=== PATIENT | female | born 1970 | race Caucasian/White ===

== ENCOUNTER 2019-10-22 12:06 | Emergency (ER) | payer OTHER, MEDICAID, SELFPAY ==
--- NOTE | 2019-10-22 12:12 | DI.RAD.S_ITS ---
PROCEDURE: XR CHEST 1V INDICATIONS: chest pain TECHNIQUE: One view of the chest was acquired. COMPARISON: None. FINDINGS: Surgical changes and devices: None. Lungs and pleura: An incomplete inspiratory result is noted, causing a crowded appearance to the lung markings. No focal infiltrates are seen. No pneumothorax or significant pleural effusions are seen. Mediastinum: Mediastinal contours appear normal. Heart size is normal. Bones and chest wall: No suspicious bony lesions. Age-appropriate bony degenerative changes are seen. Overlying soft tissues appear unremarkable. IMPRESSION: Limited portable chest examination, without a significant cardiopulmonary abnormality identified. Dictated by: Andrae Sharma M.D. on 10/22/2019 at 11:47 Approved by: Andrae Sharma M.D. on 10/22/2019 at 11:47
[2019-10-22 12:15] VITALS: BP 159/88; PULSE 97; RESP 24; TEMP 37; O2SAT 95; BMI 38.4
--- NOTE | 2019-10-22 12:21 | ED_ITS ---
HPI - Chest Pain General Chief Complaint: Chest Pain Stated Complaint: Center Chest Pain, SOB, Dizziness Time Seen by Provider: 10/22/19 12:16 Source: patient Mode of arrival: Ambulatory Limitations: no limitations History of Present Illness HPI narrative: Patient is a 49-year-old female who presents with chest disc omfort ongoing for the last few days possibly even a week. She notices it more at night when she tries to lay down she feels like her heart is fluttering in her chest. His 7 has shortness of breath is with exertion but not too bad she has a cough but it is not any worse than normal she typically gets a cough with allergies. She is extremely anxious and nervous her mom had a heart attack when she was 48 years ld. She also has anxiety and depression she thinks now she it may be having a panic attack. She says she also has some radiation up to her jaw which also happens when she has a panic attack. She has not been to a doctor for a couple of years MD complaint: chest pain Related Data Home Medications Medication Instructions Recorded Confirmed [APPLE CIDER VINEGAR] 2 cap PO PRN PRN #0 01/21/16 Previous Rx's Medication Instructions Recorded Glucose: Test Strips strip QDAY #100 08/18/16 atorvastatin [Lipitor] 20 mg PO HS #90 tab 08/18/16 levothyroxine [Synthroid] 125 mcg PO QDAY #90 tab 08/18/16 lisinopril 10 mg PO QDAY #90 tab 08/18/16 metformin [Glucophage] 500 mg PO TIDCC #90 tab 01/08/17 Allergies Allergy/AdvReac Type Severity Reaction Status Date / Time No Known Drug Allergies Allergy Verified 10/22/19 12:12 Review of Systems Review of Systems Narrative: GENERAL: Denies chills, fatigue, malaise, fever, sweats, travel HEENT: Denies sinus pain, ear pain, sore throat, difficulty swallowing, neck pain RESPIRATORY: Denies dyspnea, cough, wheezing, hemoptysis, sputum. CARDIOVASCULAR: See HPI GASTROINTESTINAL: Denies nausea, vomiting, abdominal pain, diarrhea, constipation, melena. : Denies dysuria, frequency, incontinence, hematuria, urinary retention, flank pain. MUSCULOSKELETAL: Denies weakness, joint pain, or bony pain SKIN: No rash, no erythema, no pruritus NEUROLOGIC: Denies weakness, dizziness, headache, numbness, change in speech, confusion PSYCHIATRIC: No concerning psychosocial issues. 12 point review of systems is negative except for those stated above and HPI Patient History Medical History Essential hypertension (06/01/15) Hypothyroidism (04/17/14) Type 2 diabetes mellitus without complication (07/14/14) Family History Father Type II diabetes mellitus Mother Coronary artery disease Type II diabetes mellitus Hyperlipidemia Essential hypertension Sister Hypothyroidism Migraine headache Social History Smoking Status: Never smoker Exam Initial Vital Signs Initial Vital Signs: Vital Signs Temperature 98.6 F 10/22/19 12:15 Pulse Rate 97 H 10/22/19 12:15 Respiratory Rate 24 10/22/19 12:15 Blood Pressure 159/88 H 10/22/19 12:15 Pulse Oximetry 95 10/22/19 12:15 GENERAL: Alert anxious slightly overweight female HEENT: Head atraumatic,EOMI, pupils reactive, face symmetric, moist mucous membranes CARDIOVASCULAR: Regular rate and rhythm without murmurs, rubs or gallops. RESPIRATORY: Breath sounds equal bilaterally, no wheezes rales or rhonchi. ABDOMEN: Soft, nontender. Normoactive bowel sounds all 4 quadrants. No guarding or rebound. EXTREMITIES: Normal range of motion, no clubbing or edema. Neurovascularly intact NEUROLOGICAL: Alert and oriented x4.Normal gait and speech. SKIN: Warm, dry, no laceration, no petechiae, no rashes or lesions. Scores HEART Score Heart Score history: Slightly Suspicious Heart Score EKG: Normal Heart Score Age: 45-64 years old Heart Score risk factors: > 3 risk factors or hx of atherosclerotic disease Heart Score troponin: < or = to normal limit Heart Score Total: 3 Course Orders Ordered: ED Orders 10/22/19 12:12 XR chest 1V Stat EKG-12 Lead Stat 10/22/19 12:27 Complete Blood Count AUTO DIFF Stat Comprehensive Metabolic Panel Stat Lipase Stat Partial Thromboplastin Time Stat Prothrombin Time INR Stat Troponin & CK Cardiac Panel Stat 10/22/19 13:52 EKG-12 Lead Routine Vital Signs Vital signs: Vital Signs - 8 hr 10/22/19 12:15 10/22/19 14:15 Temperature 98.6 F Pulse Rate 97 H 74 Respiratory Rate 24 18 Blood Pressure 159/88 H 162/71 H Pulse Oximetry 95 99 MDM - Chest Pain Lab Data Attestation: I reviewed the patient's lab results. Result diagrams: 10/22/19 12:27 10/22/19 12:27 Labs: Lab Results 10/22/19 10/22/19 10/22/19 Range/Units 12: 12: 12:27 WBC 7.7 (4.5-11.0) X10^3/uL RBC 5.32 H (4.0-5.2) X10^6/uL Hgb 15.0 (12.0-16.0) g/dL Hct 44.4 (36-46) % MCV 83.4 (80-100) fL MCH 28.3 (26-34) PG MCHC 33.9 (30-36) % RDW 13.6 (11.6-14.8) % Plt Count 369 (150-400) X10^3/uL Neut % (Auto) 52.4 (50-75) % Lymph % (Auto) 36.9 (25-40) % [facility] % (Auto) 8.7 (3-14) % Eos % (Auto) 1.7 L (2-4) % Baso % (Auto) 0.3 (0-2) % Neut # (Auto) 4000 (4032-7299) /uL Lymph # (Auto) 2800 (4780-6428) /uL [facility] # (Auto) 700 (0-900) /uL Eos # (Auto) 100 (0-450) /uL Baso # (Auto) 0 (0-100) /uL PT 11.3 (10.1-12.7) SECONDS INR 1.0 (0.9-1.3) APTT 30 (26.4-36.2) SECONDS Sodium 134 L (137-145) mmol/L Potassium 4.3 (3.4-5.1) mmol/L Chloride 104 (98-107) mmol/L Carbon Dioxide 19 L (22-32) mmol/L BUN 18 H (7-17) mg/dL Creatinine 0.42 L (0.52-1.04) mg/dL Estimated GFR > 60.0 (>60) mL/min BUN/Creatinine Ratio 42.9 H (6-22) Glucose 314 H (70-100) mg/dL Calcium 9.5 (8.4-10.2) mg/dL Total Bilirubin 0.8 (0.2-1.3) mg/dL AST 94 H (14-36) IU/L ALT 154 H (<35) IU/L Alkaline Phosphatase 113 (38-126) U/L Total Creatine Kinase 55 (30-135) U/L CK-MB (CK-2) TNP CK-MB (CK-2) Rel Index TNP Troponin I < 0.012 (0.01-0.034) ng/mL Total Protein 8.1 (6.3-8.2) g/dL Albumin 4.7 (3.5-5.0) g/dL Globulin 3.4 (1.7-4.1) g/dL Albumin/Globulin Ratio 1.4 (1.0-2.8) Lipase 183 (23-300) U/L Imaging Data Chest x-ray: Radiologist's Impression: PROCEDURE: XR CHEST 1V INDICATIONS: chest pain TECHNIQUE: One view of the chest was acquired. COMPARISON: None. FINDINGS: Surgical changes and devices: None. Lungs and pleura: An incomplete inspiratory result is noted, causing a crowded appearance to the lung markings. No focal infiltrates are seen. No pneumothorax or significant pleural effusions are seen. Mediastinum: Mediastinal contours appear normal. Heart size is normal. Bones and chest wall: No suspicious bony lesions. Age-appropriate bony degenerative changes are seen. Overlying soft tissues appear unremarkable. IMPRESSION: Limited portable chest examination, without a significant cardiopulmonary abnormality identified. Dictated by: Andrae Sharma M.D. on 10/22/2019 at 11:47 Approved by: Andrae Sharma M.D. on 10/22/2019 at 11:47 ECG Data Attestation: I personally reviewed and interpreted this ECG as follows: Prior ECG tracings: not available for review Interpretation: EKG 1. Normal sinus rhythm rate 96 p.r. interval 158 QRS 87 QTC 399 EKG 2. Sinus rhythm rate 85 p.r. interval 160, QTC 410 no changes from prior MDM Narrative Medical decision making narrative: Patient's discomfort and fluttering has been ongoing for a week worse at night. Troponin negative, EKGs do not show any change. At this time patient is feeling better and feels ready and able to go. Discharge Plan Departure Patient Disposition: Home Clinical Impression: Atypical chest pain Discharge Date/Time: 10/22/19 14:16 Instructions: DI for Atypical Chest Pain Activity Restrictions/Additional Instructions: *You have been diagnosed with atypical chest pain *What to do: You may require outpatient testing such as stress test and/or echocardiogram please discuss this with her primary care provider at this time is not indicated that he stay in the hospital for this testing. *Continue to take medications as directed *Follow up with your primary care provider in 2-3 days *Return to ER if you should have worsening chest pain, shortness of breath, increased heart palpitations or any new, worsening or concerning symptoms Prescriptions: No Action [APPLE CIDER VINEGAR] 2 cap PO PRN PRNQty: 0 RF: 0 atorvastatin [Lipitor] 20 MG tablet 20 mg PO HS Qty: 90 RF: 3 levothyroxine [Synthroid] 125 MCG tablet 125 mcg PO QDAY Qty: 90 RF: 3 lisinopril 10 MG tablet 10 mg PO QDAY Qty: 90 RF: 3 Glucose: Test Strips QDAY Qty: 100 RF: 4 metformin [Glucophage] 500 MG tablet 500 mg PO TIDCC Qty: 90 RF: 0 Referrals: [facility] [Outside] Ermelinda Ramsey PA-C [Primary Care Provider] -
--- NOTE | 2019-10-22 12:39 | PC.NURSE ---
iv placed labs drawn ekg performed pt on fisher trot line
[2019-10-22 12:49] LABS: Add Manual Diff / Slide Review NO; Basophils Absolute Auto 0 /uL (0-100); Basophils Percent Auto 0.3 % (0-2); Eosinophils Absolute Auto 100 /uL (0-450); Eosinophils Percent Auto 1.7 % (2-4); Hematocrit 44.4 % (36-46); Lymphocytes Absolute Auto 2800 /uL (1100-4500); Lymphocytes Percent Auto 36.9 % (25-40); Mean Corpuscular HGB Conc 33.9 % (30-36); Mean Corpuscular Hemoglobin 28.3 PG (26-34); Mean Corpuscular Volume 83.4 fL (80-100); Monocytes Absolute Auto 700 /uL (0-900); Monocytes Percent Auto 8.7 % (3-14); Neutrophils Absolute Auto 4000 /uL (1500-7000); Neutrophils Percent Auto 52.4 % (50-75); Platelet Count 369 X10^3/uL (150-400); Red Blood Cell Count 5.32 X10^6/uL (4.0-5.2); Red Cell Distribution Width 13.6 % (11.6-14.8); White Blood Cell Count 7.7 X10^3/uL (4.5-11.0)
[2019-10-22 12:50] LABS: Prothrombin Time 11.3 SECONDS (10.1-12.7)
[2019-10-22 12:52] LABS: PTT Partial Thromboplastin Tim 30 SECONDS (26.4-36.2)
[2019-10-22 12:55] LABS: Alanine Aminotransferase 154 IU/L (<35); Albumin 4.7 g/dL (3.5-5.0); Albumin Globulin Ratio 1.4 (1.0-2.8); Alkaline Phosphatase 113 U/L (38-126); Aspartate Aminotransferase 94 IU/L (14-36); BUN Creatinine Ratio 42.9 (6-22); Bilirubin Total 0.8 mg/dL (0.2-1.3); Blood Urea Nitrogen 18 mg/dL (7-17); Calcium 9.5 mg/dL (8.4-10.2); Carbon Dioxide 19 mmol/L (22-32); Chloride 104 mmol/L (98-107); Creatine Kinase 55 U/L (30-135); Estimated Glomerular Filt Rate > 60.0 mL/min (>60); Globulin 3.4 g/dL (1.7-4.1); Glucose 314 mg/dL (70-100); HEMOLYSIS 18 (0-50); Lipase 183 U/L (23-300); Potassium 4.3 mmol/L (3.4-5.1); Sodium 134 mmol/L (137-145); Total Protein 8.1 g/dL (6.3-8.2)
[2019-10-22 13:06] LABS: Troponin I < 0.012 ng/mL (0.01-0.034)
[2019-10-22 14:15] VITALS: BP 162/71; PULSE 74; RESP 18; O2SAT 99
== END 2019-10-22 14:16 | disposition home or self-care (01) ==
PROVIDERS: Emergency Provider Emergency Medicine; Family Provider Physician Assistant; PCP Physician Assistant
DX: R07.89 Other chest pain (principal); F41.9 Anxiety disorder, unspecified; F32.9 Major depressive disorder, single episode, unspecified
CPT/HCPCS: 36415; 71045; 80053; 82550; 83690; 84484; 85025; 85610; 85730; 93005; 93010; 99284

== ENCOUNTER → 2019-11-05 08:37 | Outpatient (CLI) | payer OTHER, MEDICAID, SELFPAY ==
[2019-11-07 12:08] LABS: COVID19 Sendout Not Detected (Not Detect)
== END ==
PROVIDERS: Family Provider Physician Assistant; PCP Physician Assistant; Visit Provider Physician Assistant
DX: Z11.59 Encounter for screening for other viral diseases (principal)
CPT/HCPCS: 87635

== ENCOUNTER → 2019-11-08 12:58 | Outpatient (CLI) | payer OTHER, MEDICAID, SELFPAY ==
--- NOTE | 2019-11-08 14:44 | PM.TREADMILL ---
Cardiac Stress Test Report Referral & Results Date Patient Seen: 11/08/19 Requesting provider: Tc Gruber Indication: Chest discomfort Rest ECG: Unremarkable Procedure Note: Today following both written and verbal informed consent, the patient was exercised according to a standard Lars protocol. The patient exercised for a total of 4 minutes 11 seconds achieving a maximum heart rate of 166. Patient's maximum systolic blood pressure was 188. This was an estimated 7.0 MET's. Exercise terminated because the patient was unable to continue with 3-4+ dyspnea There are no ST-T segment changes Occasional PVC Functional aerobic impairment rates about 30% on the sedentary scale Impression: No evidence of ischemia Limited exercise capacity as above Please note: Actual ECG tracings can be found in the PACS system.
== END ==
PROVIDERS: Family Provider Physician Assistant; PCP Registered Nurse; Referring Provider Registered Nurse; Visit Provider Registered Nurse
DX: R07.89 Other chest pain (principal)
CPT/HCPCS: 93016; 93017; 93018

== ENCOUNTER → 2019-11-16 13:48 | Outpatient (CLI) | payer OTHER, MEDICAID, SELFPAY ==
--- NOTE | 2019-11-16 13:49 | DI.US.S_ITS ---
PROCEDURE: US ABDOMEN COMPLETE INDICATIONS: elevated liver enzymes TECHNIQUE: Real-time scanning was performed of the abdominal and retroperitoneal organs, with image documentation. COMPARISON: None. FINDINGS: Liver: Liver is enlarged in size and homogeneous in echotexture, diffusely hyperechoic consistent with fatty infiltration. The craniocaudad length of the liver is at least 22 cm. . Gallbladder: No gallstones are seen and no pericholecystic free fluid is present but there is tenderness during sonographic palpation over the gallbladder. Biliary ducts: 1.8 mm in maximal dimension Pancreas: Appears normal where well seen. Spleen: Not enlarged, homogeneous in echotexture Kidneys: Kidneys are normal in size and echotexture. Right kidney measures 12.0 cm long; left kidney measures 13.7 cm long. No hydronephrosis or nephrolithiasis. No solid masses. Aorta: Visualized aorta is normal in caliber at less than 3 cm. Iliacs: Proximal common iliac arteries are normal in caliber at less than 2.5 cm. IVC: Intrahepatic inferior vena cava is patent. Miscellaneous: No free abdominal fluid. IMPRESSION: Hepatomegaly without splenomegaly, prominent fatty infiltration throughout the liver. No ascites or varices are found. Focal tenderness during sonographic palpation over the gallbladder, but there are no gallstones or evidence of gallbladder wall thickening or adjacent pericholecystic free fluid. There is tenderness on sonographic palpation of the gallbladder, however. Dictated by: Quintin Sheffield M.D. on 11/16/2019 at 16:08 Approved by: Quintin Sheffield M.D. on 11/16/2019 at 16:10
== END ==
PROVIDERS: Family Provider Physician Assistant; PCP Registered Nurse; Referring Provider Registered Nurse; Visit Provider Registered Nurse
DX: R74.8 Abnormal levels of other serum enzymes (principal); R16.0 Hepatomegaly, not elsewhere classified
CPT/HCPCS: 76700

== ENCOUNTER → 2020-10-09 07:18 | Outpatient (CLI) | payer OTHER, MEDICAID, SELFPAY ==
[2020-10-09 07:46] LABS: Cholesterol 243 mg/dL (140-199); HDL Cholesterol 59 mg/dL (40-60); LDL Cholesterol Calculated 139 mg/dL (<100); Triglycerides 226 mg/dL (35-150)
[2020-10-09 08:03] LABS: Free T4, Direct Thyroxine 1.57 ng/dL (0.78-2.19)
[2020-10-09 08:17] LABS: Thyroid Stimulating Hormone 6.64 uIU/mL (0.47-4.68)
== END ==
PROVIDERS: Family Provider Physician Assistant; PCP Registered Nurse; Referring Provider Registered Nurse; Visit Provider Registered Nurse
DX: E78.5 Hyperlipidemia, unspecified (principal); E03.9 Hypothyroidism, unspecified
CPT/HCPCS: 36415; 80061; 84439; 84443

== ENCOUNTER → 2020-12-29 10:37 | Outpatient (CLI) | payer OTHER, MEDICAID, SELFPAY ==
[2020-12-29 12:14] LABS: Thyroid Stimulating Hormone 3.71 uIU/mL (0.47-4.68)
== END ==
PROVIDERS: Family Provider Physician Assistant; PCP Registered Nurse; Referring Provider Registered Nurse; Visit Provider Registered Nurse
DX: E03.9 Hypothyroidism, unspecified (principal)
CPT/HCPCS: 36415; 84443

== ENCOUNTER → 2022-08-11 09:33 | Outpatient (CLI) | payer OTHER, SELFPAY ==
[2022-08-11 10:47] LABS: Add Manual Diff / Slide Review NO; Basophils Absolute Auto 100 /uL (0-100); Basophils Percent Auto 1.3 % (0-2); Eosinophils Absolute Auto 100 /uL (0-450); Eosinophils Percent Auto 2.4 % (2-4); Hemoglobin 15.2 g/dL (12.0-16.0); Lymphocytes Absolute Auto 2600 /uL (1100-4500); Lymphocytes Percent Auto 43.3 % (25-40); Mean Corpuscular HGB Conc 34.6 % (30-36); Mean Corpuscular Hemoglobin 29.1 PG (26-34); Mean Corpuscular Volume 84.1 fL (80-100); Monocytes Absolute Auto 600 /uL (0-900); Monocytes Percent Auto 9.3 % (3-14); Neutrophils Absolute Auto 2600 /uL (1500-7000); Neutrophils Percent Auto 43.7 % (50-75); Platelet Count 294 X10^3/uL (150-400); Red Blood Cell Count 5.23 X10^6/uL (4.0-5.2); Red Cell Distribution Width 12.8 % (11.6-14.8)
[2022-08-11 11:05] LABS: Alanine Aminotransferase 220 IU/L (<35); Albumin 4.6 g/dL (3.5-5.0); Albumin Globulin Ratio 1.3 (1.0-2.8); Alkaline Phosphatase 132 U/L (38-126); Aspartate Aminotransferase 112 IU/L (14-36); BUN Creatinine Ratio 38.1 (6-22); Bilirubin Total 0.9 mg/dL (0.2-1.3); Blood Urea Nitrogen 16 mg/dL (7-17); Calcium 9.5 mg/dL (8.4-10.2); Carbon Dioxide 28 mmol/L (22-32); Chloride 99 mmol/L (98-107); Cholesterol 255 mg/dL (140-199); Estimated Glomerular Filt Rate > 60 mL/min (>60); Globulin 3.5 g/dL (1.7-4.1); Glucose 355 mg/dL (70-100); HDL Cholesterol 49 mg/dL (40-60); HEMOLYSIS < 15 (0-50); LDL Cholesterol Calculated 171 mg/dL (<100); Potassium 4.6 mmol/L (3.4-5.1); Sodium 136 mmol/L (137-145); Total Protein 8.1 g/dL (6.3-8.2); Triglycerides 176 mg/dL (35-150)
[2022-08-11 11:34] LABS: Creatinine Urine Random 89.8 mg/dL
[2022-08-11 11:39] LABS: Microalbumi Creatinin Ratio Ur 64.5 ug/mg CR (<30); Microalbumin Urine Random 5.8 mg/dL (0-1.6)
[2022-08-11 12:11] LABS: Free T4, Direct Thyroxine 0.94 ng/dL (0.78-2.19)
[2022-08-12 07:14] LABS: Labcorp Hemoglobin (Hb) A1c 12.3 % (4.8-5.6)
== END ==
PROVIDERS: Family Provider Physician Assistant; PCP Family Medicine; Referring Provider Family Medicine; Visit Provider Family Medicine
DX: E03.9 Hypothyroidism, unspecified (principal); E11.42 Type 2 diabetes mellitus with diabetic polyneuropathy; E11.8 Type 2 diabetes mellitus with unspecified complications; E78.5 Hyperlipidemia, unspecified; I10 Essential (primary) hypertension
CPT/HCPCS: 36415; 80053; 80061; 82043; 82570; 83036; 84439; 84443; 85025

== ENCOUNTER → 2022-10-01 09:47 | Outpatient (CLI) | payer OTHER, SELFPAY ==
[2022-10-01 11:41] LABS: BUN Creatinine Ratio 29.5 (6-22); Blood Urea Nitrogen 13 mg/dL (7-17); Calcium 9.2 mg/dL (8.4-10.2); Carbon Dioxide 26 mmol/L (22-32); Chloride 102 mmol/L (98-107); Estimated Glomerular Filt Rate > 60 mL/min (>60); Glucose 194 mg/dL (70-100); HEMOLYSIS < 15 (0-50); Potassium 4.1 mmol/L (3.4-5.1); Sodium 138 mmol/L (137-145)
[2022-10-01 11:50] LABS: Free T3, Triiodothyronine Free 2.98 pg/mL (2.77-5.27); Free T4, Direct Thyroxine 1.38 ng/dL (0.78-2.19)
[2022-10-01 12:04] LABS: Thyroid Stimulating Hormone 3.66 uIU/mL (0.47-4.68)
[2022-10-02 09:01] LABS: Fructosamine 370 umol/L (0-285)
[2022-10-02 18:36] LABS: Thyroid Peroxidase Antibodies 135 IU/mL (0-34)
== END ==
PROVIDERS: Family Provider Physician Assistant; PCP Family Medicine; Referring Provider Family Medicine; Visit Provider Family Medicine
DX: E03.9 Hypothyroidism, unspecified (principal); E11.8 Type 2 diabetes mellitus with unspecified complications; E78.5 Hyperlipidemia, unspecified
CPT/HCPCS: 36415; 80048; 82985; 84439; 84443; 84481; 86376; 86800

== ENCOUNTER → 2022-12-06 09:27 | Outpatient (CLI) | payer OTHER, SELFPAY ==
[2022-12-06 10:27] LABS: Hemoglobin A1C% w Est Avg Glu 9.1 % (4.0-6.0)
[2022-12-07 07:38] LABS: Fructosamine 459 umol/L (0-285)
== END ==
PROVIDERS: Family Provider Physician Assistant; PCP Family Medicine; Referring Provider Family Medicine; Visit Provider Family Medicine
DX: E11.8 Type 2 diabetes mellitus with unspecified complications (principal); E11.21 Type 2 diabetes mellitus with diabetic nephropathy; E11.42 Type 2 diabetes mellitus with diabetic polyneuropathy; E78.5 Hyperlipidemia, unspecified
CPT/HCPCS: 36415; 82985; 83036

== ENCOUNTER → 2023-03-14 09:40 | Outpatient (CLI) | payer OTHER, SELFPAY ==
[2023-03-14 11:34] LABS: Hemoglobin A1C% w Est Avg Glu 10.2 % (4.0-6.0)
== END ==
LOC: LAB 09:41
PROVIDERS: Family Provider Physician Assistant; PCP Family Medicine; Referring Provider Family Medicine; Visit Provider Family Medicine
DX: E11.8 Type 2 diabetes mellitus with unspecified complications (principal)
CPT/HCPCS: 36415; 83036

== ENCOUNTER → 2023-04-11 07:48 | Outpatient (CLI) | payer OTHER, SELFPAY ==
--- NOTE | 2023-04-11 07:50 | DI.MG.S_ITS ---
BILATERAL DIGITAL SCREENING MAMMOGRAM 3D/2D WITH CAD: 04/11/2023 CLINICAL: Routine screening. Comparison is made to exam dated: 05/05/2014 mammogram - [facility]. There are scattered areas of fibroglandular density in both breasts (category b / 25%-50% glandular tissue). Current study was also evaluated with a Computer Aided Detection (CAD) system. No significant masses, calcifications, or other findings are seen in either breast. There has been no significant interval change. IMPRESSION: NEGATIVE There is no mammographic evidence of malignancy. A 1 year screening mammogram is recommended. Based on the Tyrer Cuzick model (a risk assessment model) the patient's lifetime risk is 7.9% and her 10 year risk is 2.1%. According to the ACR, ACS, and NCCN guidelines, an annual breast MRI exam along with mammogram is recommended if the patient's lifetime risk is 20% or greater. This exam was interpreted at Station ID: [id number]. NOTE: For mammograms, a report in lay terms will be sent to the patient. Approximately 15% of breast malignancies will not be visualized mammographically. In the management of a palpable breast mass, a negative mammogram must not discourage biopsy of a clinically suspicious lesion. Electronically Signed By: Navdeep livingston/[email or web address]:04/13/2023 09:02:16 letter sent: Normal Exam ACR BI-RADS Category 1: Negative 3341F
== END ==
LOC: MAMMO 07:49
PROVIDERS: Family Provider Physician Assistant; PCP Family Medicine; Referring Provider Family Medicine; Visit Provider Family Medicine
DX: Z12.31 Encounter for screening mammogram for malignant neoplasm of breast (principal); R92.323 Mammographic fibroglandular density, bilateral breasts
CPT/HCPCS: 77063; 77067

== ENCOUNTER → 2023-04-21 15:10 | Outpatient (CLI) | payer OTHER, SELFPAY ==
--- NOTE | 2023-04-21 16:50 | DIAB.MNT ---
Initial Diabetes Medical Nutrition Therapy Assessment Name: Mariama Treviño Date: 04/21/23 Time: 335-435p Dx: Type II Diabetes Mariama presents for initial Dm visit. PMH of DM since . H/o DM education at [facility]. PMH of GDM with last (). Reports some neuropathy symptoms in toes and fingers. FH of Dm with both parents, father h/o toe amputation. Mother passed and father currently in hospice. Cousin recently passed and has had health problems this year. She also is having some concerns for her daughter, who just dropped out of college. Overall, feeling stress. Reports baseline difficulty with anxiety. Manages this with self talk and family support. Tries to avoid anxiety meds per report. States she feels a lot of guilt with dm, ie guilt with eating right and guilt with elevated bg. Plans to start Invocana, waiting on rx to arrive. Insurance would not initially approve GLP1, though she thinks they would if needed. Has hesitation about injections though. Has questions about when to take glipizide. Main questions today is about protein. How does this impact CHO and bg. 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 Most meals small and freq. Portions seem mostly in goal, but sometimes low in protein. sometimes higher carb intake. Reports h/o 30# weight loss with walking. Diet Recall: 730a: decaf coffee with sf creamer and stevia 845a: 1/2c rice cereal, 1/4c pineapple, 8oz milk 1030a: 1/2c cottage cheese, coke zero OR low CHO wolof yogurt OR cheese sticks 1230p: bbq chx 2 legs, 1/2c baked beans, 1/2c rice OR 1/2c enchiladas, 1/3c peas, 1/3c peaches 315p: 8 crackers, with hummus, fruit or veggie 5p: 1-2c tuna casserol with garlic bread OR chicken enchiladas OR applebees Thursday: chx with patricia and potatoes Beverages: 60oz water, 1-2 16oz bottles coke zero, 16oz sf sweet tea Anthropometrics: Ht: 68 Wt: 259# 03/2023 at PCP Physical Activity: Currently no program. H/o gym and walking. wants to get back to exercise. Self-Monitoring Blood Glucose: None currently. H/o feeling overwhelmed by high numbers and stopping checks as a result. Diabetes Medications: 10mg Glipizide 1000mg Metformin BID 100mg Invocana (not started yet) Pertinent Labs: HgA1c: 12.3% 07/2022 9.1% 11/2022 10.2% 03/2023 Past Medical History: (Last Updated 08/19/22 @ 11:50 by Umm Fuentes DO) Essential hypertension (06/01/15) Hypothyroidism (04/17/14) LOM (left otitis media) Nutrition Rx: Carbohydrates: Meal:30-45g Snack:15-30g Nutrition Diagnosis: - Nutrition knowledge deficit r/t needing more guidance on CHO/PRO recs aeb pt report - Self monitoring deficit r/t anxiety about hyperglycemia results aeb pt report - Physical inactivity r/t stage of change contemplative/preparation aeb pt report Intervention: This participant was very receptive. Provided appropriate educational handouts. Discussed the following topics: Completed intake assessment. Discussed barriers to care. Pathophysiology of T2DM HgA1 review Self monitoring recs and if elevated the implication (lifestyle changes vs meds) Plate Method, impact of macronutrients on blood sugar, meal timing, brief carbohydrate counting, pairing macronutrients and spreading out carbohydrates for better blood glucose management Recommended servings for carbohydrates at meals and snacks Brainstormed appropriate meal/snack ideas on food preferences Role of physical activity and plan Impact of stress on BG Support network for stress management Med management: action of GLP1 and SGLT2i, taking glipizide pre meal Created SMART goals for patient self-care and success. Goals: Aim for 2 walks per week Check BG Keep CHO to 1 c at meals Incorporate protein in meals/snacks Follow-up: KALI JACQUES follow-up in 2-3 weeks Ana Olson RDN, SAWYER Certified Diabetes Care and Lens Examiner P: [phone] Thank you for this referral
== END ==
PROVIDERS: Family Provider Physician Assistant; PCP Family Medicine; Referring Provider Family Medicine; Visit Provider Family Medicine
DX: E11.9 Type 2 diabetes mellitus without complications (principal); Z79.84 Long term (current) use of oral hypoglycemic drugs; Z71.3 Dietary counseling and surveillance
CPT/HCPCS: 97802

== ENCOUNTER → 2023-05-06 15:37 | Outpatient (CLI) | payer OTHER, SELFPAY ==
--- NOTE | 2023-05-07 11:39 | DIAB.MNTFU ---
Follow-up Diabetes Medical Nutrition Therapy Assessment Name: Mariama Treviño Date: 05/06/23 Time: 4-5p Dx: Type II Diabetes Mariama presents for Dm follow-up. Her father recently passed. She somewhat teary today. Reports some stress/emotional eating recently. Per diet recall, work days her eating schedule is pretty set with small freq portions, sometimes low in protein. On non work or non student days, eating schedule is not as structured with more grazing. Endorses snacking on chips without portioning out. Chooses low carb bread. Still waiting on added DM med, Invokana. Endorses feeling nervous about other dm meds, ie insulin and other injectables. Fearful of GLP1RA due to hearing about GI SE. Unclear on what her insurance will cover, but seems she may need additional dm med for BG management. Reports frequent eating out. Anthropometrics: Ht: 68 Wt: 259# 03/2023 at PCP Physical Activity: Currently no program. H/o gym and walking. wants to get back to exercise. Reports some walking recently but weather dependent. Self-Monitoring Blood Glucose: One evening check 3-4 hrs after dinner at 240 mg/dl. No other readings. Diabetes Medications: 10mg Glipizide 1000mg Metformin BID 100mg Invokana (not started yet) Pertinent Labs: HgA1c: 12.3% 07/2022 9.1% 11/2022 10.2% 03/2023 Past Medical History: (Last Updated 08/19/22 @ 11:50 by Umm Fuentes DO) Essential hypertension (06/01/15) Hypothyroidism (04/17/14) LOM (left otitis media) Nutrition Rx: Carbohydrates: Meal:30-45g Snack:15-30g Nutrition Diagnosis: - Nutrition knowledge deficit r/t needing more guidance on CHO/PRO recs aeb pt report- improved/in progress - Self monitoring deficit r/t anxiety about hyperglycemia results aeb pt report- in progress - Physical inactivity r/t stage of change contemplative/preparation aeb pt report- in progress Intervention: This participant was very receptive. Provided appropriate educational handouts. Discussed the following topics: Meal timing, carbohydrate, pairing macronutrients and spreading out carbohydrates for better blood glucose management Meal planning and carb portions Stress eating DM medications actions, SE, overall options Created SMART goals for patient self-care and success. Goals: Aim for 2 walks per week- not met Check BG - in progress Keep CHO to 1 c at meals - in progress Incorporate protein in meals/snacks - not met Aim for eating q 3-4 hours on days without students- new Call insurance about Dm meds- new Portion out chips- new Pair nuts with chips at snack- new Follow-up: KALI JACQUES follow-up in 2-3 weeks Ana Olson RDN, SAWYER Certified Diabetes Care and Chute Man P: [phone] Thank you for this referral
== END ==
PROVIDERS: Family Provider Physician Assistant; PCP Family Medicine; Referring Provider Family Medicine; Visit Provider Family Medicine
DX: E11.9 Type 2 diabetes mellitus without complications (principal); Z79.84 Long term (current) use of oral hypoglycemic drugs; Z71.3 Dietary counseling and surveillance
CPT/HCPCS: 97803

== ENCOUNTER → 2023-05-19 15:43 | Outpatient (CLI) | payer OTHER, SELFPAY ==
--- NOTE | 2023-05-27 17:10 | DIAB.MNTFU ---
Follow-up Diabetes Medical Nutrition Therapy Assessment Name: Mariama Treviño Date: 05/19/23 Time: 4-530p Dx: Type II Diabetes Mariama presents for DM follow-up. 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 Reports reduced chip intake recently. States she called insurance about DM med coverage. Received a letter. Will bring next visit. Pairing protein and carbs for snacks. Reports numbness in feet. Has eye appt in May. No dental visit scheduled. Continued stress with family dynamics in losing father and cousin. Uses walking for stress management. Reports freq eating out each week, 3-4x Eating out: Local place: fish and chips with coleslaw Restaurant: chicken or steak with veggies +/- potatoes OR eggplant parm with spaghetti and salad and breadsticks Fast food: burger with fries or fajita osiel with fries or onion rings taco and burrito or nachos Anthropometrics: Ht: 68 Wt: 259# 03/2023 at PCP Physical Activity: Currently no program. H/o gym and walking. wants to get back to exercise. Reports some walking recently but weather dependent. Wants to get back to walking. Self-Monitoring Blood Glucose: Inconsistent checks indicate elevations, FBG 250-280mg/dl. Diabetes Medications: 10mg Glipizide 1000mg Metformin BID 100mg Invokana (not started yet) Pertinent Labs: HgA1c: 12.3% 07/2022 9.1% 11/2022 10.2% 03/2023 Past Medical History: (Last Updated 08/19/22 @ 11:50 by Umm Fuentes DO) Essential hypertension (06/01/15) Hypothyroidism (04/17/14) LOM (left otitis media) Nutrition Rx: Carbohydrates: Meal:30-45g Snack:15-30g Nutrition Diagnosis: - Nutrition knowledge deficit r/t needing more guidance on CHO/PRO recs aeb pt report- improved/in progress - Self monitoring deficit r/t anxiety about hyperglycemia results aeb pt report- in progress - Physical inactivity r/t stage of change contemplative/preparation aeb pt report- in progress - Excessive CHO intake r/t nutrition knowledge deficit regarding eating out aeb diet recall- new Intervention: This participant was very receptive. Provided appropriate educational handouts. Discussed the following topics: Blood sugar review Medication review: likely need for additional dm med coverage Plate Method, label reading, eating out strategies Heart health nutrition: fats, fiber, and sodium Meal planning and carb counting review Physical activity plan and progress Complication reduction: caring for feet, importance of dental and eye visits Created SMART goals for patient self-care and success. Goals: Aim for eating q 3-4 hours on days without students- met Call insurance about Dm meds- met Portion out chips- met Pair nuts with chips at snack- met Check feet daily- new Check insurance letter- new Call for dental visit- new Try new eating out option- new Walk 2x per week for 20-30 min- new Follow-up: KALI JACQUES follow-up in 2-3 weeks. Plans to see PCP in May. Ana Olson RDN, CDCES Certified Diabetes Care and Hearing Aid Fitter P: [phone] Thank you for this referral
== END ==
LOC: DIET 15:44
PROVIDERS: Family Provider Physician Assistant; PCP Family Medicine; Referring Provider Family Medicine; Visit Provider Family Medicine
DX: E11.9 Type 2 diabetes mellitus without complications (principal); Z79.84 Long term (current) use of oral hypoglycemic drugs; Z71.3 Dietary counseling and surveillance
CPT/HCPCS: 97803

== ENCOUNTER → 2023-06-06 09:17 | Outpatient (CLI) | payer OTHER, SELFPAY ==
[2023-06-06 09:59] LABS: Hematocrit 41.3 % (36-46); Hemoglobin 13.9 g/dL (12.0-16.0); Mean Corpuscular HGB Conc 33.7 % (30-36); Mean Corpuscular Hemoglobin 28.4 PG (26-34); Mean Corpuscular Volume 84.4 fL (80-100); Platelet Count 338 X10^3/uL (150-400); Red Blood Cell Count 4.89 X10^6/uL (4.0-5.2); Red Cell Distribution Width 13.1 % (11.6-14.8); White Blood Cell Count 7.1 X10^3/uL (4.5-11.0)
[2023-06-06 10:12] LABS: Hemoglobin A1C% w Est Avg Glu 9.8 % (4.0-6.0)
[2023-06-06 10:16] LABS: Alanine Aminotransferase 109 IU/L (<35); Albumin 4.4 g/dL (3.5-5.0); Albumin Globulin Ratio 1.4 (1.0-2.8); Alkaline Phosphatase 94 U/L (38-126); Aspartate Aminotransferase 62 IU/L (14-36); BUN Creatinine Ratio 42.9 (6-22); Bilirubin Total 0.6 mg/dL (0.2-1.3); Blood Urea Nitrogen 18 mg/dL (7-17); Calcium 9.7 mg/dL (8.4-10.2); Carbon Dioxide 29 mmol/L (22-32); Chloride 106 mmol/L (98-107); Cholesterol 243 mg/dL (140-199); Estimated Glomerular Filt Rate > 60 mL/min (>60); Globulin 3.2 g/dL (1.7-4.1); Glucose 268 mg/dL (70-100); HDL Cholesterol 56 mg/dL (40-60); HEMOLYSIS < 15 (0-50); LDL Cholesterol Calculated 150 mg/dL (<100); Potassium 4.7 mmol/L (3.4-5.1); Sodium 139 mmol/L (137-145); Total Protein 7.6 g/dL (6.3-8.2); Triglycerides 183 mg/dL (35-150)
[2023-06-06 10:19] LABS: High Sensitivity CRP - Cardiac 3.5 mg/L (1.0-3.0)
[2023-06-06 10:46] LABS: TSH w/ Reflex to FT4 0.42 uIU/mL (0.47-4.68)
[2023-06-06 11:11] LABS: Free T4, Direct Thyroxine 1.45 ng/dL (0.78-2.19)
[2023-06-06 11:28] LABS: Creatinine Urine Random 89.8 mg/dL
[2023-06-06 11:29] LABS: Microalbumi Creatinin Ratio Ur 51.2 ug/mg CR (<30); Microalbumin Urine Random 4.6 mg/dL (0-1.6)
[2023-06-07 06:15] LABS: Thyroid Peroxidase Antibodies 66 IU/mL (0-34)
== END ==
PROVIDERS: Family Provider Physician Assistant; PCP Family Medicine; Referring Provider Family Medicine; Visit Provider Family Medicine
DX: E11.8 Type 2 diabetes mellitus with unspecified complications (principal); E11.21 Type 2 diabetes mellitus with diabetic nephropathy; E11.42 Type 2 diabetes mellitus with diabetic polyneuropathy; E78.5 Hyperlipidemia, unspecified; I10 Essential (primary) hypertension; E03.9 Hypothyroidism, unspecified; K76.0 Fatty (change of) liver, not elsewhere classified
CPT/HCPCS: 36415; 80053; 80061; 82043; 82570; 83036; 84439; 84443; 85027; 86140; 86376

== ENCOUNTER → 2023-06-18 15:44 | Outpatient (CLI) | payer OTHER, SELFPAY ==
--- NOTE | 2023-06-30 08:41 | DIAB.MNTFU ---
Follow-up Diabetes Medical Nutrition Therapy Assessment Name: Mariama Treviño Date: Time: Dx: Type II Diabetes Provider: Preferred Learning Style: Diet Recall: Anthropometrics: Ht: Wt: Weight history: Physical Activity: Self-Monitoring Blood Glucose: Date Pre Post Pre Post Pre Post HS Diabetes Medications: Pertinent Labs: Past Medical History: (Last Updated 08/19/22 @ 11:50 by Umm Fuentes DO) Essential hypertension (06/01/15) Hypothyroidism (04/17/14) LOM (left otitis media) Nutrition Rx: Carbohydrates: Daily: Meal: Snack: Nutrition Diagnosis: Intervention: This participant was very receptive. Provided appropriate educational handouts. Discussed the following topics: Blood sugar review and trends. Impact of food intake on results. Plate Method, impact of macronutrients on blood sugar, meal timing, carbohydrate counting, pairing macronutrients and spreading out carbohydrates for better blood glucose management Heart health nutrition: fats, fiber, and sodium Eating out and grocery shopping tips Meal planning and carb counting review Physical activity plan and progress Created SMART goals for patient self-care and success. Goals: Follow-up: KALI JACQUES follow-up in 2-3 weeks Ana Olson RDN, [facility] Certified Diabetes Care and Pulp House Supervisor P: [phone] Thank you for this referral
--- NOTE | 2023-06-30 08:41 | DIAB.MNTFU ---
Follow-up Diabetes Medical Nutrition Therapy Assessment Name: Mariama Treviño Date: 06/18/23 Time: 4-445p Dx: Type II Diabetes Mariama presents for follow-up DM visit. Reports she plans to pickling solution maker Jardiance at pharmacy today. States she is choosing more salads over fries when eating out. Also more eggs vs pancakes when eating out breakfast. Reports not buying sweets. States she has increased veggie intake. eating out 4x on weekends. Has not made dental appt. Feels if she moved shower to nighttime she would have more time for morning routine and BG checks. Anthropometrics: Ht: 68 Wt: 268# 06/08/2023 Physical Activity: Walking 1x per week min, goal of 2x per week Self-Monitoring Blood Glucose: None Diabetes Medications: 10mg Glipizide 1000mg Metformin BID 10mg Jardiance Pertinent Labs: HgA1c: 12.3% 07/2022 9.1% 11/2022 10.2% 03/2023 9.8% 06/2023 Past Medical History: (Last Updated 08/19/22 @ 11:50 by Umm Fuentes DO) Essential hypertension (06/01/15) Hypothyroidism (04/17/14) LOM (left otitis media) Nutrition Rx: Carbohydrates: Meal:30-45g Snack:15-30g Nutrition Diagnosis: - Nutrition knowledge deficit r/t needing more guidance on CHO/PRO recs aeb pt report- improved - Self monitoring deficit r/t anxiety about hyperglycemia results aeb pt report- in progress - Physical inactivity r/t stage of change contemplative/preparation aeb pt report- improved - Excessive CHO intake r/t nutrition knowledge deficit regarding eating out aeb diet recall- improved Intervention: This participant was very receptive. Provided appropriate educational handouts. Discussed the following topics: Eating out review and changes Impact of lifestyle and pathophysiology of DM on hgA1c and diabetes state Reducing risks of complications Self monitoring BG Physical activity plan and progress Created SMART goals for patient self-care and success. Goals: Check feet daily- met Check insurance letter- met Call for dental visit- in progress Try new eating out option- met Walk 2x per week for 20-30 min- improved Try to reduce eating out- new Move shower to evening- new Start FBG checks- new Follow-up: KALI JACQUES follow-up in 2-3 weeks Ana Olson RDN, [facility] Certified Diabetes Care and Geodetic Survey Director P: [phone] Thank you for this referral
== END ==
PROVIDERS: Family Provider Physician Assistant; PCP Family Medicine
DX: E11.9 Type 2 diabetes mellitus without complications (principal); Z79.84 Long term (current) use of oral hypoglycemic drugs; Z71.3 Dietary counseling and surveillance
CPT/HCPCS: 97803

== ENCOUNTER 2023-07-21 11:59 | Day surgery (SDC) | payer OTHER, SELFPAY ==
[2023-07-21 12:43] VITALS: BP 151/84; PULSE 83; RESP 22; TEMP 37; O2SAT 98
[2023-07-21] MEDS: LACTATED RINGERS 1,000 ML 42 ML IV (12:44)
--- NOTE | 2023-07-21 12:58 | PM.HP.1 ---
History of Present Illness History of Present Illness Date Patient Seen: 07/21/23 Time Patient Seen: 12:58 Chief complaint: Colonoscopy Narrative: 52-year-old woman here for screening colonoscopy 1st time. No family history of colon cancer in first-degree relatives. No abdominal concerns today. [facility] Medical History (Updated 03/16/23 @ 09:36 by Umm Fuentes DO) LOM (left otitis media) Essential hypertension (06/01/15) Hypothyroidism (04/17/14) Family History Father Type II diabetes mellitus Mother Coronary artery disease Type II diabetes mellitus Hyperlipidemia Essential hypertension Sister Hypothyroidism Migraine headache Social History Smoking Status: Never smoker alcohol intake: current Meds Home Medications and Allergies Home Medications Medication Instructions Recorded Confirmed Type Glucose: Test Strips 08/05/21 12/15/22 History L.ac,bul,par,rha-B.ani,patrick-inu PO 08/19/22 03/16/23 History [Probiotic Digest Supp (6-strn)] biotin [Hair, Skin and Nails PO 08/19/22 03/16/23 History (biotin)] fluticasone propionate [24 Hour intranasal 08/19/22 03/16/23 History Allergy Relief] glipizide 10 mg tablet 10 mg PO DAILY #90 tabs 03/16/23 07/21/23 Rx levothyroxine 112 mcg tablet 112 mcg PO DAILY #90 tabs 03/16/23 07/21/23 Rx loratadine 10 mg tablet (Claritin) 10 mg PO DAILY 03/16/23 07/21/23 History metformin 500 mg tablet See Rx Instructions .Route 03/16/23 07/21/23 Rx .COMPLEX #360 tabs sodium chloride [Saline Nasal] intranasal 03/16/23 03/16/23 History lisinopril 20 mg tablet 20 mg PO DAILY #90 tabs 06/08/23 07/21/23 Rx estradiol 0.025 mg/24 hr 1 patch transdermal 2XW #8 ea 07/06/23 07/21/23 Rx semiweekly transdermal patch progesterone micronized 200 mg 200 mg PO BEDTIME #45 caps 05/06/24 05/21/24 Rx capsule (Prometrium) empagliflozin 10 mg tablet 10 mg PO DAILY 07/21/23 07/21/23 History (Jardiance) Allergies Allergy/AdvReac Type Severity Reaction Status Date / Time No Known Drug Allergies Allergy Verified 07/21/23 12:24 Exam Vital Signs (past 8 hours): - 07/21/23 12:43 Temperature 98.6 F Pulse Rate 83 Respiratory Rate 22 Blood Pressure 151/84 H Pulse Oximetry 98 Oxygen Delivery Method Room Air Oxygen Delivery Method Room Air Narrative Exam Narrative: General adult woman alert oriented no acute distress Chest nonlabored respiration Extremities warm well perfused Assessment & Plan Assessment & Plan narrative: The patient requires colorectal screening and colonoscopy is recommended. Technical details were discussed. Risks, benefits, alternatives explained. Risks including but not limited to myocardial infarction, aspiration, bleeding, pain, missed lesion, incomplete examination, need for further radiographic studies, intestinal injury, and need for major abdominal surgery were discussed. All questions were answered to their satisfaction, and they are in agreement with this plan.
[2023-07-21 13:27] VITALS: BP 109/65; PULSE 70; RESP 12; TEMP 36.4; O2SAT 97
[2023-07-21 13:32] VITALS: BP 112/72; PULSE 71; RESP 15; O2SAT 97
--- NOTE | 2023-07-21 13:32 | P.OP.COLON_ITS ---
Operative Date/Time/Diagnoses Date of procedure: 07/21/23 Time of procedure: 13:32 Pre-op diagnosis: Colorectal screening Procedure & Clinicians Study performed: Screening colonoscopy Same procedure as scheduled: Yes Indications: Colorectal screening Surgeon: Santana Bradford Procedure Notes Procedure in detail: The history and physical was performed/updated and the patient is ASA class is 2. The procedure was discussed in detail with the patient. Potential risks co mplications including infection, bleeding, missed diagnosis, perforation, need for surgery, and were explained. Their questions were answered and informed consent was obtained. Patient was brought to the procedure room and placed standard monitoring equipment. The patient's vital signs were monitored continuously throughout the entire procedure. Prior to starting time-out was performed. The patient was placed in the left lateral recumbent position. Procedural sedation was administered by anesthesia. Examination began with a thorough inspection of the perianal area there was no evidence of fissures, fistulae, external hemorrhoids or cutaneous malignancy. The colonoscopy scope was then placed into the anal canal and was advanced to the cecum, which was identified by the ileocecal valve, the appendiceal orifice and the confluence of the taenia. The scope was then slowly withdrawn examining colon thoroughly in all directions, irrigating it of any residual stool. The scope was retroflexed within the rectum The patient tolerated the procedure well. They will be discharged once criteria are met. The prep was of good/excellent quality. The withdrawl time was 7 minutes. FINDINGS * Tortuous colon. Required external compression and stiffening of scope * No masses polyps or inflammation. Normal healthy colonic mucosa. * Internal hemorrhoids Specimen(s): none sent Impression: Normal colon Post-procedure Recommendations: Colonoscopy in 10 years Disposition: same day surgery
[2023-07-21 13:37] VITALS: BP 126/71; PULSE 68; RESP 22; O2SAT 96
[2023-07-21 13:42] VITALS: BP 131/75; PULSE 71; RESP 22; O2SAT 98
== END 2023-07-21 14:01 | disposition home or self-care (01) ==
PROVIDERS: Family Provider Physician Assistant; PCP Family Medicine; Referring Provider Surgery; Visit Provider Surgery
PROC: 0DJD8ZZ Inspection of Lower Intestinal Tract, Via Natural or Artificial Opening Endoscopic (ICD-10-PCS; CPT 45378; principal; 2023-07-21 13:00)
DX: Z12.11 Encounter for screening for malignant neoplasm of colon (principal); K64.8 Other hemorrhoids
CPT/HCPCS: 45378; J2704

== ENCOUNTER → 2023-08-18 16:27 | Outpatient (CLI) | payer OTHER, SELFPAY ==
--- NOTE | 2023-09-10 13:00 | DIAB.MNTFU ---
Follow-up Diabetes Medical Nutrition Therapy Assessment Name: Mariama Treviño Date: 08/18/23 Time: 435-5p Dx: Type II Diabetes Mariama presents for follow-up visit today. Repots taking Jardiance. Notices if she stops eating at 7-8p her FBG is better. Off from work for the summer. Eating out less, 2-3x on weekends, cooking more on weekdays. Got chicken to pre prep meals. Also got some RTE meals/ Frozen meals. will be out of town and wanting easy ways to prep meals. Diet recall: 930a: eggs, sausage, cottage cheese, toast low Cho 1230p: leftovers 3p: crackers x 7 with cheese OR cottage cheese OR berries OR artichoke and archuleta 5-6p: pasta x 2c with meatballs OR eating out salad 8-9p: cheese Anthropometrics: Ht: 68 Wt: 268# 06/08/2023 Physical Activity: walks 2x per week, though less lately. Plans to increase activity this summer with walking at festivals. Self-Monitoring Blood Glucose: Has been checking FBG, which are often elevated: 158, 160, 172, 143, 177, 186, 154 mg/dl. Diabetes Medications: 10mg Glipizide 1000mg Metformin BID 10mg Jardiance Pertinent Labs: HgA1c: 12.3% 07/2022 9.1% 11/2022 10.2% 03/2023 9.8% 06/2023 Past Medical History: (Last Updated 08/19/22 @ 11:50 by Umm Fuentes DO) Essential hypertension (06/01/15) Hypothyroidism (04/17/14) LOM (left otitis media) Nutrition Rx: Carbohydrates: Meal:30-45g Snack:15-30g Nutrition Diagnosis: - Nutrition knowledge deficit r/t needing more guidance on CHO/PRO recs aeb pt report- improved - Self monitoring deficit r/t anxiety about hyperglycemia results aeb pt report- improved - Predicted inadequate fiber intake r/t limited consistent veggies aeb diet recall- new Intervention: This participant was very receptive. Provided appropriate educational handouts. Discussed the following topics: Blood sugar review and trends. Meal planning and carb counting review Eating out strategies Incorporating more veggies Physical activity plan Risk reduction for Dm complications Created SMART goals for patient self-care and success. Goals: Try to reduce eating out- met Move shower to evening- met Start FBG checks- met Add veggies to dinner, especially RTE meals- new Call for dental- new Walk 2x per week consistently - new Follow-up: KALI JACQUES follow-up in 3-4 weeks Ana Olson RDN, [facility] Certified Diabetes Care and Rn Social Services P: [phone] Thank you for this referral
== END ==
PROVIDERS: Family Provider Physician Assistant; PCP Family Medicine; Referring Provider Family Medicine
DX: E11.9 Type 2 diabetes mellitus without complications (principal); Z79.84 Long term (current) use of oral hypoglycemic drugs; Z71.3 Dietary counseling and surveillance
CPT/HCPCS: 97803

== ENCOUNTER → 2023-09-07 07:44 | Outpatient (CLI) | payer OTHER, SELFPAY ==
[2023-09-07 09:10] LABS: Hemoglobin A1C% w Est Avg Glu 7.4 % (4.0-6.0)
== END ==
LOC: LAB 07:44
PROVIDERS: Family Provider Physician Assistant; PCP Family Medicine; Referring Provider Family Medicine; Visit Provider Family Medicine
DX: E11.8 Type 2 diabetes mellitus with unspecified complications (principal)
CPT/HCPCS: 36415; 83036

== ENCOUNTER → 2023-09-11 10:33 | Outpatient (CLI) | payer OTHER, SELFPAY ==
[2023-09-11 13:13] LABS: Appearance Urine UA CLEAR; Bilirubin Urine UA NEGATIVE (NEGATIVE); Color Urine UA YELLOW; Glucose Urine UA 3+ g/dL (Negative); Ketones Urine UA NEGATIVE (NEGATIVE); Leukocyte Esterase Urine UA TRACE (NEGATIVE); Nitrite Urine UA NEGATIVE (Negative); Occult Blood Urine UA NEGATIVE (Negative); Protein Urine UA NEGATIVE (Negative); Urobilinogen Urine UA 0.2 E.U./dL (0.2)
[2023-09-11 13:15] LABS: pH Urine UA 5.5 (4.5-8.0)
[2023-09-11 13:19] LABS: Bacteria Urine Many (>30); Culture Indicated Urine Specimen Cultured; RBC Urine 0-1/HPF (0-5/HPF); Squamous Epithelial Cell Urine 10-30 /HPF (0-5/HPF); Urine Volume 10mL (spun); WBC Urine 10-30/HPF (0-5/HPF)
== END ==
PROVIDERS: Family Provider Physician Assistant; PCP Family Medicine; Visit Provider Family Medicine
DX: R39.9 Unspecified symptoms and signs involving the genitourinary system (principal)
CPT/HCPCS: 81001; 87077; 87086; 87186

== ENCOUNTER → 2023-09-22 12:50 | Outpatient (CLI) | payer OTHER, SELFPAY ==
--- NOTE | 2023-09-22 13:12 | DIAB.MNTFU ---
Follow-up Diabetes Medical Nutrition Therapy Assessment Name: Mariama Treviño Date: 09/22/23 Time: 105-135p Dx: Type II Diabetes Mariama presents for follow-up visit today. Eating out more frequently. Ordering veggies. States that since her is working more during the summer, she may grab fast food more often. usually eats out with at least twice per week. Diet recall: 930a: eggs, cottage cheese, bread 1p: small burger fast food with sm carr[place] and apples OR PBJ with low sugar jam +/- chips or 1c fruit 3p: 1c fruit 5-6p: clam chowder and bread OR half sandwich eating out with salad 8-9p: cheese or 1/2c cheeries Reports numbness of feet. Takes a supplement rec'd by provider per report, which she feels does help. Had microfilament test by provider time before. Goes bare foot often. Gets athlete's foot infection during summer sometimes per report, but has been on top of treatment. Reports she would like to lose 10#. States she has some self conscious feelings about fitting comfortably on plane seats. Going on cruise this Sep with family. Plans to focus on changes thereafter. Anthropometrics: Ht: 68 Wt: 266# 08/2023 268# 06/08/2023 Physical Activity: walks 1-2x per week. walking at summer festivals more. Self-Monitoring Blood Glucose: Has been checking FBG, which have been 130-160mg/dl Diabetes Medications: 10mg Glipizide 1000mg Metformin BID 10mg Jardiance Pertinent Labs: HgA1c: 12.3% 07/2022 9.1% 11/2022 10.2% 03/2023 9.8% 06/2023 7.4% 08/2023 Past Medical History: (Last Updated 08/19/22 @ 11:50 by Umm Fuentes DO) Essential hypertension (06/01/15) Hypothyroidism (04/17/14) LOM (left otitis media) Nutrition Rx: Carbohydrates: Meal:30-45g Snack:15-30g Nutrition Diagnosis: - Nutrition knowledge deficit r/t needing more guidance on CHO/PRO recs aeb pt report- in progress - Predicted inadequate fiber intake r/t limited consistent veggies aeb diet recall-improved - Excessive Na intake r/t stage of change contemplative for eating out aeb pt report and diet recall Intervention: This participant was very receptive. Provided appropriate educational handouts. Discussed the following topics: Blood sugar review and trends. Eating out freq Foot health: no bare feet, importance of foot wear and checking feet daily Wt loss goals BG goals Improved HGA1c Created SMART goals for patient self-care and success. Goals: Add veggies to dinner, especially RTE meals- improved Call for dental- in progress Walk 2x per week consistently - improved Avoid bare feet- new Try to keep eating out to 2x per week once returning from trip- new Follow-up: KALI JACQUES follow-up in October per pt request. Ana Olson RDN, [facility] Certified Diabetes Care and Product Marketing Programs Manager P: [phone] Thank you for this referral
== END ==
LOC: DIET 12:51
PROVIDERS: Family Provider Physician Assistant; PCP Family Medicine; Referring Provider Family Medicine
DX: E11.9 Type 2 diabetes mellitus without complications (principal); Z79.84 Long term (current) use of oral hypoglycemic drugs; Z71.3 Dietary counseling and surveillance
CPT/HCPCS: 97803

== ENCOUNTER → 2023-11-05 15:03 | Outpatient (CLI) | payer OTHER, SELFPAY ==
--- NOTE | 2023-12-22 08:28 | DIAB.MNTFU ---
Follow-up Diabetes Medical Nutrition Therapy Assessment Name: Mariama Treviño Date: 11/05/23 Time: 310-4p Dx: Type II Diabetes Mariama presents for follow-up visit today. Just returned from cruise 2 weeks ago. Just restarted BG checks. Noticed swelling of feet on airplane. Rash on foot going away, she gets this annually. A cut on her foot is present from festival, was wearing open toed shoes with little protection. Last week cooked home meals 2x since she had been eating out mostly over the last 2 weeks. Back to work, but kids had not started yet. Reports panic attacks x2 before cruise. Reports h/o anxiety and tx with medications. Plans to see PCP in Nov. H/o UTI while on Jardiance. Not rinsing or using wet wipes to remove excess sugars. Anthropometrics: Ht: 68 Wt: 266# 08/2023 268# 06/08/2023 Physical Activity: Trying to increase walking recently. Went hiking on Thursday. Self-Monitoring Blood Glucose: Has been checking FBG, which have been 130-160mg/dl (129, 139, 153) Diabetes Medications: 10mg Glipizide 1000mg Metformin BID 10mg Jardiance Pertinent Labs: HgA1c: 12.3% 07/2022 9.1% 11/2022 10.2% 03/2023 9.8% 06/2023 7.4% 08/2023 Past Medical History: (Last Updated 08/19/22 @ 11:50 by Umm Fuentes DO) Essential hypertension (06/01/15) Hypothyroidism (04/17/14) LOM (left otitis media) Nutrition Rx: Carbohydrates: Meal:30-45g Snack:15-30g Nutrition Diagnosis: - Nutrition knowledge deficit r/t needing more guidance on CHO/PRO recs aeb pt report- in progress - Excessive Na intake r/t stage of change contemplative for eating out aeb pt report and diet recall- in progress - Physical inactivity r/t stage of change preparation/action for activity program aeb pt report - new Intervention: This participant was very receptive. Provided appropriate educational handouts. Discussed the following topics: Blood sugar review and trends. Foot trang, proper shoes and slippers with a sole Eating out and impact on BG and health Strategies for reducing eating out Physical activity program Recommendations for SGLT2i: hydration and strategies for reducing UTI/yeast infections Created SMART goals for patient self-care and success. Goals: Avoid bare feet- in progress Try to keep eating out to 2x per week once returning from trip- not met Check out DM shoes/slippers- new Reduce eating out- new Restart home cooking- new Walks 2 days per week- new Get wipes- new Aim for 64oz water per day - new Follow-up: KALI JACQUES follow-up in 3-4 weeks Ana Olson RDN, [facility] Certified Diabetes Care and Plant Guard P: [phone] Thank you for this referral
== END ==
PROVIDERS: Family Provider Physician Assistant; PCP Family Medicine; Referring Provider Family Medicine
DX: E11.8 Type 2 diabetes mellitus with unspecified complications (principal); Z71.3 Dietary counseling and surveillance; Z79.84 Long term (current) use of oral hypoglycemic drugs
CPT/HCPCS: 97803

== ENCOUNTER → 2023-12-22 15:11 | Outpatient (CLI) | payer OTHER, SELFPAY ==
--- NOTE | 2023-12-22 15:26 | DIAB.MNTFU ---
Follow-up Diabetes Medical Nutrition Therapy Assessment Name: Mariama Treviño Date: 12/22/23 Time: 330-405p Dx: Type II Diabetes Mariama presents for follow-up visit today. Still working on getting DM shoes she likes. States she has ordered some but did not like them. Started eating at home more often. Watching portions. Noticed higher BG with rice. Limiting portions. Notices if she stops eating after 7p, FBG are 120s. Or if eating cottage cheese prior to bed will have better FBG. Reduced eating out to 4x per week, less than last visit. Increased water intake: 32oz +16oz= 48oz Diet soda x 1-2 SF tea: 16oz x 2 Questions about sf vitamin water. Tried wipes, but felt this was irritating. Thinking of trying sensitive baby wipes. Treating anxiety with PCP. Happy that we are approaching nutrition changes with realistic strategies per report. Anthropometrics: Ht: 68 Wt: 266# 08/2023 268# 06/08/2023 Physical Activity: None lately. Wanting to increase walking. Considering mini stationary bike. Self-Monitoring Blood Glucose: Has been checking FBG, which have been 120-160mg/dl (145, 113, 124, 140) Diabetes Medications: 10mg Glipizide 1000mg Metformin BID 10mg Jardiance Pertinent Labs: HgA1c: 12.3% 07/2022 9.1% 11/2022 10.2% 03/2023 9.8% 06/2023 7.4% 08/2023 7.4% 12/2023 Past Medical History: (Last Updated 08/19/22 @ 11:50 by Umm Fuentes DO) Essential hypertension (06/01/15) Hypothyroidism (04/17/14) LOM (left otitis media) Nutrition Rx: Carbohydrates: Meal:30-45g Snack:15-30g Nutrition Diagnosis: - Nutrition knowledge deficit r/t needing more guidance on CHO/PRO recs aeb pt report- in progress - Excessive Na intake r/t stage of change contemplative for eating out aeb pt report and diet recall- in progress/improved - Physical inactivity r/t stage of change preparation/action for activity program aeb pt report - in progress Intervention: This participant was very receptive. Provided appropriate educational handouts. Discussed the following topics: Blood sugar trends Eating out: sodium and carbohydrates Potential for CGM sample Physical activity options Strategies for eating at home more often Beverages and hydration recommendations Created SMART goals for patient self-care and success. Goals: Check out DM shoes/slippers- met Reduce eating out- met Restart home cooking- met Walks 2 days per week- not met Get wipes- met Aim for 64oz water per day - met Consider CGM sample- new Try sensitive wipes- new Consider mini stationary bike- new Start making stews/soups- new Follow-up: KALI JACQUES follow-up in March. States she would like to have more time to make changes, and take less time off from work. Encouraged her to call or message for sooner f/u or CGM sample prn. She agreed. Ana Olson RDN, [facility][NOTE 3] Certified Diabetes Care and Security Incident Response Specialist P: [phone] Thank you for this referral
== END ==
PROVIDERS: Family Provider Physician Assistant; PCP Family Medicine; Referring Provider Family Medicine
DX: E11.42 Type 2 diabetes mellitus with diabetic polyneuropathy (principal); E11.21 Type 2 diabetes mellitus with diabetic nephropathy; Z71.3 Dietary counseling and surveillance; Z79.84 Long term (current) use of oral hypoglycemic drugs
CPT/HCPCS: 97803

== ENCOUNTER → 2024-01-21 14:20 | Outpatient (CLI) | payer OTHER, SELFPAY ==
[2024-01-21 15:08] LABS: Influenza A - CEPHEID Flu A NEGATIVE (NEGATIVE); Influenza B - CEPHEID Flu B NEGATIVE (NEGATIVE); Respiratory Syncytial Virus Negative (Negative)
[2024-01-21 15:12] LABS: COVID-19 CEPHEID 4-PLEX PCR Negative (Negative)
== END ==
PROVIDERS: Family Provider Physician Assistant; PCP Family Medicine; Visit Provider Physician Assistant
DX: R05.1 Acute cough (principal)
CPT/HCPCS: 0241U

== ENCOUNTER → 2024-03-25 15:47 | Outpatient (CLI) | payer OTHER, SELFPAY ==
--- NOTE | 2024-03-25 17:06 | DIAB.MNTFU ---
Follow-up Diabetes Medical Nutrition Therapy Assessment Name: Mariama Treviño Date: 03/25/24 Time: 410-450 Dx: Type II Diabetes Mariama presents for follow-up visit today. Bought new shoes that no longer bother her feet. Recent PCP visit for plantar fascia pain. Has not made soups/stews yet. Bought some at [employer] but did not like it much. Fatigue at the end of work day, barrier to making homemade soups. 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 Due for labs Anthropometrics: Ht: 68 Wt: 265# 03/2024 266# 08/2023 268# 06/08/2023 Physical Activity: bought the mini stationary bike. Feet have been bothering her, plantar fascia. Self-Monitoring Blood Glucose: FBG 129-151mg/dl. Not wanting CGM at this time. Feels this may induce more anxiety. Diabetes Medications: 10mg Glipizide 1000mg Metformin BID 10mg Jardiance Pertinent Labs: HgA1c: 12.3% 07/2022 9.1% 11/2022 10.2% 03/2023 9.8% 06/2023 7.4% 08/2023 7.4% 12/2023 Past Medical History: (Last Updated 08/19/22 @ 11:50 by Umm Fuentes DO) Essential hypertension (06/01/15) Hypothyroidism (04/17/14) LOM (left otitis media) Nutrition Rx: Carbohydrates: Meal:30-45g Snack:15-30g Nutrition Diagnosis: - Nutrition knowledge deficit r/t needing more guidance on CHO/PRO recs aeb pt report- in progress - Excessive Na intake r/t stage of change contemplative for eating out aeb pt report and diet recall- in progress/improved - Physical inactivity r/t stage of change preparation/action for activity program aeb pt report - in progress Intervention: This participant was very receptive. Provided appropriate educational handouts. Discussed the following topics: Blood sugar trends Eating out frequency Physical activity Pairing CHO and protein Created SMART goals for patient self-care and success. Goals: Consider CGM sample- in progress Try sensitive wipes- met Consider mini stationary bike- met Start making stews/soups- not met Add protein to each meal/snack- new Start using stationary bike- new Follow-up: KALI JACQUES follow-up in 3-4 weeks. Mariama continues to work on lifestyle change. With the holidays this has been a challenge. Would rec if hgA1c not under 7% in the next 3 months adding additional diabetes medication Ana Olson RDN, [facility] Certified Diabetes Care and Electric System Operator P: [phone] Thank you for this referral
== END ==
PROVIDERS: Family Provider Physician Assistant; PCP Family Medicine; Referring Provider Family Medicine
DX: E11.8 Type 2 diabetes mellitus with unspecified complications (principal); Z71.3 Dietary counseling and surveillance; Z79.84 Long term (current) use of oral hypoglycemic drugs
CPT/HCPCS: 97803

== ENCOUNTER → 2024-03-26 10:16 | Outpatient (CLI) | payer OTHER, SELFPAY ==
[2024-03-26 11:53] LABS: Hemoglobin A1C% w Est Avg Glu 6.8 % (4.0-6.0)
[2024-03-26 12:06] LABS: Alanine Aminotransferase 60 IU/L (<35); Albumin 5.2 g/dL (3.5-5.0); Albumin Globulin Ratio 1.5 (1.0-2.8); Alkaline Phosphatase 78 U/L (38-126); Aspartate Aminotransferase 47 IU/L (14-36); BUN Creatinine Ratio 47.1 (6-22); Bilirubin Total 0.7 mg/dL (0.2-1.3); Blood Urea Nitrogen 24 mg/dL (7-17); Calcium 9.9 mg/dL (8.4-10.2); Carbon Dioxide 24 mmol/L (22-32); Chloride 102 mmol/L (98-107); Cholesterol 258 mg/dL (140-199); Estimated Glomerular Filt Rate > 60 mL/min (>60); Globulin 3.4 g/dL (1.7-4.1); Glucose 147 mg/dL (70-100); HDL Cholesterol 62 mg/dL (40-60); HEMOLYSIS < 15 (0-50); LDL Cholesterol Calculated 151 mg/dL (<100); Potassium 4.7 mmol/L (3.4-5.1); Sodium 140 mmol/L (137-145); Total Protein 8.6 g/dL (6.3-8.2); Triglycerides 225 mg/dL (35-150)
[2024-03-26 12:35] LABS: TSH w/ Reflex to FT4 2.14 uIU/mL (0.47-4.68)
[2024-03-27 05:11] LABS: Thyroid Peroxidase Antibodies 34 IU/mL (0-34)
[2024-04-01 11:09] LABS: Estradiol, Sensitive 36.9 pg/mL (.)
== END ==
PROVIDERS: Family Provider Physician Assistant; PCP Family Medicine; Referring Provider Family Medicine; Visit Provider Family Medicine
DX: Z00.01 Encounter for general adult medical examination with abnormal findings (principal); Z79.890 Hormone replacement therapy; N95.1 Menopausal and female climacteric states; E66.01 Morbid (severe) obesity due to excess calories; E03.9 Hypothyroidism, unspecified; I10 Essential (primary) hypertension; E78.5 Hyperlipidemia, unspecified; K76.0 Fatty (change of) liver, not elsewhere classified; E11.8 Type 2 diabetes mellitus with unspecified complications
CPT/HCPCS: 36415; 80053; 80061; 82670; 83036; 84443; 86376

== ENCOUNTER → 2024-04-27 15:46 | Outpatient (CLI) | payer OTHER, SELFPAY ==
--- NOTE | 2024-04-27 16:10 | DIAB.MNTFU ---
Follow-up Diabetes Medical Nutrition Therapy Assessment Name: Mariama Treviño Date: 04/27/24 Time: 405-435p Dx: Type II Diabetes Mariama presents for follow-up visit today. Recent labs show improved hgA1c and liver enzymes (though still elevated). Cholesterol remains elevated. Got protein powder, but texture not great. Trying different options. Looking for some affordable options. Trying to make good choices when eating out. Back to frequent eating out. 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 trying to use shake to add protein, but not sure what she should be looking for in a label. Has noticed higher FBG. Attributes this to increased candy intake lately. Going on a cruise with cousin in May. Anthropometrics: Ht: 68 Wt: 265# 03/2024 266# 08/2023 268# 06/08/2023 Physical Activity: bought the [employer] bike. No program currently. Self-Monitoring Blood Glucose: FBG 140-151mg/dl. Not wanting CGM at this time. Feels this may induce more anxiety. Diabetes Medications: 10mg Glipizide 1000mg Metformin BID 10mg Jardiance Pertinent Labs: HgA1c: 12.3% 07/2022 9.1% 11/2022 10.2% 03/2023 9.8% 06/2023 7.4% 08/2023 7.4% 12/2023 6.8%03/2024 Past Medical History: (Last Updated 08/19/22 @ 11:50 by Umm Fuentes DO) Essential hypertension (06/01/15) Hypothyroidism (04/17/14) LOM (left otitis media) Nutrition Rx: Carbohydrates: Meal:30-45g Snack:15-30g Nutrition Diagnosis: - Nutrition knowledge deficit r/t needing more guidance on CHO/PRO recs aeb pt report- in progress - Excessive Na intake r/t stage of change contemplative for eating out aeb pt report and diet recall- in progress - Physical inactivity r/t stage of change preparation/action for activity program aeb pt report - in progress - Predicted excessive CHO intake r/t candy access in the house lately aeb pt report - new Intervention: This participant was very receptive. Provided appropriate educational handouts. Discussed the following topics: Blood sugar trends Eating out frequency Physical activity Pairing CHO and protein Protein recs for meals/snacks label reading Ways to improve protein shake palatability Created SMART goals for patient self-care and success. Goals: Add protein to each meal/snack- improved Start using stationary bike- in progress Get rid of Valentines Day candy- new Try half protein powder in 8oz milk- new Try different protein shake- new Add protein snack pre bed- new Follow-up: KALI JACQUES follow-up in 3-4 weeks. Will discuss more MNT for HLD next visit. Ana Olson RDN, [facility] [place] Certified Diabetes Care and Infrastructure Solutions Architect P: [phone] Thank you for this referral
== END ==
PROVIDERS: Family Provider Physician Assistant; PCP Family Medicine; Referring Provider Family Medicine
DX: E11.9 Type 2 diabetes mellitus without complications (principal); Z79.84 Long term (current) use of oral hypoglycemic drugs; Z71.3 Dietary counseling and surveillance
CPT/HCPCS: 97803

== ENCOUNTER → 2024-05-25 15:39 | Outpatient (CLI) | payer OTHER, SELFPAY ==
--- NOTE | 2024-06-10 14:35 | DIAB.MNTFU ---
Follow-up Diabetes Medical Nutrition Therapy Assessment Name: Mariama Treviño Date: 05/25/24 Time: 420-5p Dx: Type II Diabetes Mariama presents for follow-up visit today. Reports recent constipation x 2-3 days and then loose stool. Seems to cycle between this. Has questions regarding fiber. Taking supplements for DM care lately, ie cinnamon and other. Having nuts and cheese as HS snack. Plans for cruise for spring break. Eating dark chocolate if having sweet craving. using protein shake in coffee now for flavor and increase in pro intake. Ht: 68 Wt: 265# 03/2024 266# 08/2023 268# 06/08/2023 Physical Activity: No program currently. Getting a puppy, which she hopes will increase her activity. Self-Monitoring Blood Glucose: FBG 130-140mg/dl usually. Higher when evening candy or CHO snacks per report. Highest FBG 159mg/dl. Not wanting CGM at this time. Feels this may induce more anxiety. Diabetes Medications: 10mg Glipizide 1000mg Metformin BID 10mg Jardiance Pertinent Labs: HgA1c: 12.3% 07/2022 9.1% 11/2022 10.2% 03/2023 9.8% 06/2023 7.4% 08/2023 7.4% 12/2023 6.8%03/2024 Past Medical History: (Last Updated 08/19/22 @ 11:50 by Umm Fuentes DO) Essential hypertension (06/01/15) Hypothyroidism (04/17/14) LOM (left otitis media) Nutrition Rx: Carbohydrates: Meal:30-45g Snack:15-30g Nutrition Diagnosis: - Nutrition knowledge deficit r/t needing more guidance on CHO/PRO recs aeb pt report- in progress - Excessive Na intake r/t stage of change contemplative for eating out aeb pt report and diet recall- in progress - Physical inactivity r/t stage of change preparation/action for activity program aeb pt report - in progress - Predicted excessive CHO intake r/t candy access in the house lately aeb pt report - improved Intervention: This participant was very receptive. Provided appropriate educational handouts. Discussed the following topics: Blood sugar trends BM MNT and fiber types and amts and sources Eating on vacation Physical activity Supplements: lack of info on efficacy and safety Created SMART goals for patient self-care and success. Goals: Get rid of Valentines Day candy- met Try half protein powder in 8oz milk- d/c Try different protein shake- met Add protein snack pre bed- met Try slowly increasing fiber- new Bring BG next visit- new Follow-up: KALI JACQUES follow-up in 8 weeks per pt request Ana Olson RDN, [facility] Certified Diabetes Care and [employer] Can[employer] Maker And Installer P: [phone] Thank you for this referral
== END ==
LOC: DIET 15:41
PROVIDERS: Family Provider Physician Assistant; PCP Family Medicine; Referring Provider Family Medicine
DX: E11.9 Type 2 diabetes mellitus without complications (principal); K59.00 Constipation, unspecified; Z79.84 Long term (current) use of oral hypoglycemic drugs; Z71.3 Dietary counseling and surveillance
CPT/HCPCS: 97803

== ENCOUNTER → 2024-09-15 11:23 | Outpatient (CLI) | payer OTHER, SELFPAY ==
[2024-09-15 12:46] LABS: Hemoglobin A1C% w Est Avg Glu 7.0 % (4.0-6.0)
== END ==
PROVIDERS: PCP Family Medicine; Referring Provider Family Medicine; Visit Provider Family Medicine
DX: E11.8 Type 2 diabetes mellitus with unspecified complications (principal)
CPT/HCPCS: 36415; 83036

== ENCOUNTER → 2024-09-17 08:36 | Outpatient (CLI) | payer OTHER, SELFPAY ==
--- NOTE | 2024-09-17 08:38 | DI.MG.S_ITS ---
MM screening mammo BI: 09/17/2024. BI-RADS: 1 CLINICAL: 54-year old female for bilateral screening mammogram. Tyrer-Cuzick lifetime risk of 11.2%. No personal or first-degree family history of breast cancer. PRIOR EXAMS 04/11/2023, 05/05/2014. MAMMOGRAPHY TECHNIQUE: 2D and 3D (tomosynthesis) digital mammographic views obtained, with additional images as needed for full coverage. Current study was also evaluated with a Computer Aided Detection (CAD) system. DENSITY B. There are scattered areas of fibroglandular density. MAMMOGRAPHY FINDINGS Bilateral: No suspicious mass, asymmetry, microcalcification, or other abnormality seen. IMPRESSION: * No evidence of malignancy. RECOMMENDATIONS Bilateral * Annual screening mammography. OVERALL ASSESSMENT CATEGORY BI-RADS-1: Negative. The [employer] recommends annual screening mammography beginning at age 40 for women with average risk of breast cancer. ELECTRONICALLY SIGNED: Symone Galeas M.D. on 09/18/2024 at 04:44:12 PM PT Interpreting Station ID: [id number]
== END ==
LOC: MAMMO 08:37
PROVIDERS: PCP Family Medicine; Referring Provider Family Medicine; Visit Provider Family Medicine
DX: Z12.31 Encounter for screening mammogram for malignant neoplasm of breast (principal)
CPT/HCPCS: 77063; 77067

== ENCOUNTER → 2024-12-17 09:30 | Outpatient (CLI) | payer OTHER, SELFPAY ==
[2024-12-17 10:25] LABS: Hematocrit 44.1 % (36-46); Hemoglobin 15.0 g/dL (12.0-16.0); Mean Corpuscular HGB Conc 34.1 % (30-36); Mean Corpuscular Hemoglobin 28.5 PG (26-34); Mean Corpuscular Volume 83.5 fL (80-100); Platelet Count 389 X10^3/uL (150-400)
[2024-12-17 10:37] LABS: Hemoglobin A1C% w Est Avg Glu 7.3 % (4.0-6.0)
[2024-12-17 10:48] LABS: Alanine Aminotransferase 55 IU/L (<35); Albumin 4.7 g/dL (3.5-5.0); Albumin Globulin Ratio 1.5 (1.0-2.8); Alkaline Phosphatase 96 U/L (38-126); Blood Urea Nitrogen 20 mg/dL (7-17); Calcium 9.5 mg/dL (8.4-10.2); Carbon Dioxide 26 mmol/L (22-32); Chloride 101 mmol/L (98-107); Cholesterol 218 mg/dL (140-199); Estimated Glomerular Filt Rate > 60 mL/min (>60); Globulin 3.2 g/dL (1.7-4.1); Glucose 168 mg/dL (70-99); HDL Cholesterol 55 mg/dL (40-60); HEMOLYSIS < 15 (0-50); Potassium 5.0 mmol/L (3.4-5.1); Sodium 137 mmol/L (137-145); Total Protein 7.9 g/dL (6.3-8.2); Triglycerides 170 mg/dL (35-150)
[2024-12-17 11:21] LABS: TSH w/ Reflex to FT4 3.09 uIU/mL (0.47-4.68)
== END ==
LOC: LAB 09:31
PROVIDERS: PCP Family Medicine; Referring Provider Family Medicine; Visit Provider Family Medicine
DX: E03.9 Hypothyroidism, unspecified (principal); I10 Essential (primary) hypertension; E78.5 Hyperlipidemia, unspecified; E11.21 Type 2 diabetes mellitus with diabetic nephropathy; K76.0 Fatty (change of) liver, not elsewhere classified
CPT/HCPCS: 36415; 80053; 80061; 83036; 84443; 85027